=== PATIENT | male | born 2000 | race Hispanic/Latino ===

== ENCOUNTER 2025-04-08 08:05 | Emergency (ER) | payer BC ==
[2025-04-08 08:33] LABS: Absolute Lymphocytes (CBC) 1.7 K/uL (0.7-4.9); Hematocrit 45.8 % (39.6-49.0); Hemoglobin 15.7 g/dL (13.6-17.9); MCH 31.4 pg (27.0-35.0); MCHC 34.3 g/dL (32.0-36.0); MCV 91.4 fL (80-100); MPV 7.4 fL (7.6-11.3); Nucleated RBC Absolute Count 0.0 (0-0); Nucleated Red Blood Cells % 0.0 % (0-0); RBC Red Blood Cell Count 5.01 M/uL (4.33-5.43); White Blood Count 7.40 thou/uL (4.3-10.9)
[2025-04-08 08:51] LABS: ALT/SGPT 67.0 U/L (16-61); AST/SGOT 36.0 U/L (15-37); Albumin 4.0 g/dL (3.4-5.0); Albumin/Globulin Ratio 1.0 (1.1-1.8); Alkaline Phosphatase 84.0 U/L (45-117); Anion Gap 8.6 mEq/L (5.0-15.0); BUN Blood Urea Nitrogen 15.0 mg/dL (7-18); Globulin 3.9 g/dL (2.3-3.5); Glucose Level 100.0 mg/dL (74-106); Potassium 3.6 mEq/L (3.5-5.1)
[2025-04-08 08:52] LABS: Influenza A Ag Negative; Influenza B Ag Negative
[2025-04-08 08:54] LABS: SARS-CoV-2 Antigen Rapid Res Positive (Negative)
--- NOTE | 2025-04-08 09:36 | RAD REPORT ---
EXAM: Chest Single View HISTORY: 24 years Male COUGH COMPARISON: 06/03/2022 FINDINGS: LUNGS/PLEURA: The lungs are clear. No pleural effusions or pneumothorax. No pulmonary edema. CARDIAC/MEDIASTINUM: The cardiac silhouette is within normal limits. UPPER ABDOMEN: No significant abnormality. BONES: No acute abnormality. LINES/TUBES/OTHER: N/A IMPRESSION: No evidence of acute cardiopulmonary disease.
--- NOTE | 2025-04-08 09:42 | ER ---
Nurse's Notes [facility] Name: Juan Cruz Jr Age: 24 yrs Sex: Male : 2000 Arrival Date: 04/08/2025 Time: 08:05 Bed 8 Private MD: Diagnosis: SARS-associated coronavirus as the cause of diseases classified elsewhere Presentation: 04/08 08:19 Chief complaint: Patient states: COUGH, SORE THROAT AND INTERMITTENT EPISTAXIS x2 DAYS. bp Coronavirus screen: At this time, the client does not indicate any symptoms associated with coronavirus-19. Ebola Screen: No symptoms or risks identified at this time. Initial Sepsis Screen: Does the patient meet any 2 criteria? No. Patient's initial sepsis screen is negative. Does the patient have a suspected source of infection? No. Patient's initial sepsis screen is negative. Risk Assessment: Do you want to hurt yourself or someone else? Patient reports no desire to harm self or others. Onset of symptoms is unknown. 08:19 Method Of Arrival: Ambulatory bp 08:19 Acuity: KRISHAN 3 bp Triage Assessment: 08:20 General: Appears in no apparent distress. Behavior is cooperative, appropriate for age, bp anxious. Pain: Denies pain. EENT: No deficits noted. Neuro: No deficits noted. Cardiovascular: Rhythm is sinus tachycardia. Respiratory: Reports HEMOPTYSIS. GI: No signs and/or symptoms were reported involving the gastrointestinal system. GI: Reports normal bowel habits. : No signs and/or symptoms were reported regarding the genitourinary system. Derm: No deficits noted. Musculoskeletal: No deficits noted. Historical: - Allergies: 08:20 No Known Allergies; bp - PMHx: 08:20 None; bp - Immunization history:: Adult Immunizations up to date. - Infectious Disease History:: Denies. - Social history:: Smoking status: Reported history of juuling and/or vaping. Screenin:21 [facility] ED Fall Risk Assessment (Adult) History of falling in the last 3 months, bp including since admission No falls in past 3 months (0 pts) Confusion or Disorientation No (0 pts) Intoxicated or Sedated No (0 pts) Impaired Gait No (0 pts) Mobility Assist Device Used No (0 pt) Altered Elimination No (0 pt) Score/Fall Risk Level 0 - 2 = Low Risk Oriented to surroundings. Abuse screen: Denies threats or abuse. Denies injuries from another. Nutritional screening: No deficits noted. Tuberculosis screening: No symptoms or risk factors identified. Assessment: 08:20 General: SEE TRIAGE NOTE. GI: Abdomen is non-distended. bp Vital Signs: 08:19 BP 146 / 94; Pulse 100; Resp 18; Temp 98; Pulse Ox 97% ; bp 09:50 BP 130 / 83; Pulse 93; Resp 15; Pulse Ox 98% ; bp ED Course: 08:08 Patient arrived in ED. al6 08:09 [facility] kb 08:09 Jorge Alberto Johsi MD is Attending Physician. kb 08:10 Chung Limon, RN is Primary Nurse. bp 08:20 Triage completed. bp 08:20 Arm band placed on. bp 08:21 Patient has correct armband on for positive identification. bp 08:21 Initial lab(s) drawn, by me, sent to lab. COVID swab sent to lab. Flu and/or RSV swab bp sent to lab. Strep swab sent to lab. Inserted saline lock: 20 gauge in right antecubital area, using aseptic technique. Blood collected. Flushed with 10 mL NS. 09:34 Chest Single View XRAY In Process Unspecified. EDMS 09:51 No provider procedures requiring assistance completed. IV discontinued, intact, bp bleeding controlled, No redness/swelling at site. Pressure dressing applied. Administered Medications: No medications were administered Outcome: 09:42 Discharge ordered by MD. kb 09:51 Discharged to home ambulatory, bp 09:51 Condition: stable 09:51 Discharge instructions given to patient, Instructed on discharge instructions, follow up and referral plans. Demonstrated understanding of instructions, follow-up care, 09:51 Patient left the ED. bp Signatures: Dispatcher [employer] EDMS Greta Saucedo FNP-C FNP-Ckb Peltier, Brian, RN RN Karina Trujillo al6
--- NOTE | 2025-04-08 09:42 | EDPHYS ---
Physician Documentation [facility] Name: Juan Cruz Jr Age: 24 yrs Sex: Male : 2000 Arrival Date: 04/08/2025 Time: 08:05 Bed 8 Private MD: ED Physician Jorge Alberto Joshi HPI: 04/08 08:46 This 24 yrs old Male presents to ER via Ambulatory with complaints of Flank kb Pain, Vomiting - blood. 08:46 Patient is a 24-year-old male who presents for sore throat, cough with hemoptysis and kb nosebleed. States the sore throat started yesterday morning, hemoptysis started last night and nosebleed was last night, now resolved. States he has had a cough this morning but has not noticed any blood in it. Patient reports pain to lateral aspects of ribs. Historical: - Allergies: 08:20 No Known Allergies; bp - PMHx: 08:20 None; bp - Immunization history:: Adult Immunizations up to date. - Infectious Disease History:: Denies. - Social history:: Smoking status: Reported history of juuling and/or vaping. ROS: 08:47 Constitutional: As per HPI kb Exam: 08:47 Constitutional: This is a well developed, well nourished patient who is awake, alert, kb and in no acute distress. Head/Face: Normocephalic, atraumatic. ENT: Moist Mucous membranes Cardiovascular: Regular rate Respiratory: Respirations even and unlabored. No increased work of breathing. Talking in full sentences Abdomen/GI: Soft, non-tender. No distention Skin: Warm, dry with normal turgor. Normal color. MS/ Extremity: Pulses equal, no cyanosis. Neurovascular intact. Full, normal range of motion. Neuro: Awake and alert, GCS 15, oriented to person, place, time, and situation. Vital Signs: 08:19 BP 146 / 94; Pulse 100; Resp 18; Temp 98; Pulse Ox 97% ; bp 09:50 BP 130 / 83; Pulse 93; Resp 15; Pulse Ox 98% ; bp MDM: 08:09 Medical Screening Exam initiated kb 09:28 Differential Diagnosis: Bronchitis Influenza Upper Respiratory Infection Pneumonia kb Other covid. Data reviewed: vital signs, nurses notes. I considered the following discharge prescriptions or medication management in the emergency department I discussed and recommended Over The Counter medications, Antibiotics: At this time antibiotics are not recommended. Independent interpretation of the following test(s) in the Emergency Department X-Ray: My interpretation is no pneumonia or pneumothorax. Counseling: I had a detailed discussion with the patient and/or guardian regarding the historical points, exam findings, and any diagnostic results supporting the discharge/admit diagnosis, lab results, radiology results, the need for outpatient follow up, a family practitioner, to return to the emergency department if symptoms worsen or persist or if there are any questions or concerns that arise at home. 04/08 08:15 Order name: CBC with Diff; Complete Time: 08:38 kb 04/08 08:15 Order name: CMP; Complete Time: 08:58 kb 04/08 08:15 Order name: D-Dimer; Complete Time: 08:48 kb 04/08 08:15 Order name: COVID-19 Ag + Flu A+B Ag; Complete Time: 08:58 kb 04/08 08:15 Order name: Group A Streptococcus Rapid; Complete Time: 08:47 kb 04/08 08:49 Order name: Throat Culture [facility] 04/08 08:35 Order name: Chest Single View XRAY; Complete Time: 09:42 ss 04/08 08:15 Order name: IV Start; Complete Time: 08:18 kb Administered Medications: No medications were administered Disposition: 17:10 Co-signature as Attending Physician, Jorge Alberto Joshi MD I reviewed the patient's care rn provided by the Advanced Practice Provider and agree with the diagnosis and treatment plan. Disposition Summary: 04/08/25 09:42 Discharge Ordered Notes: Location: Home kb Condition: Stable kb Diagnosis - SARS-associated coronavirus as the cause of diseases classified elsewhere kb Followup: kb - With: Emergency Department - When: As needed - Reason: Worsening of condition Followup: kb - With: Private Physician - When: 2 - 3 days - Reason: Recheck today's complaints, Continuance of care, Re-evaluation by your physician Discharge Instructions: - Discharge Summary Sheet kb - COVID-19 kb - Viral Illness, Adult kb Forms: - Work release form kb - Medication Reconciliation Form kb - Antibiotic Education kb - Prescription Opioid Use kb - Patient Portal Instructions kb - Leadership Thank You Letter kb Signatures: Dispatcher [employer] EDGreta Dunlap, HANNAH-C DAYCARE MANAGER-Jorge Alberto Redd MD MD rn Chung Limon RN RN bp Corrections: (The following items were deleted from the chart) 08:47 08:46 Patient is a 24-year-old male who presents for sore throat, cough with hemoptysis kb and nosebleed. States the sore throat started yesterday morning, hemoptysis started last night and nosebleed was last night, now resolved. States he has had a cough this morning but has not noticed any blood in it.. kb
[2025-04-08 10:09] VITALS: TEMP 98
[2025-04-08 10:10] VITALS: BP 130/83; O2SAT 98
== END 2025-04-08 09:51 | disposition home or self-care (01) ==
LOC: ER 08:05
DX: U07.1 COVID-19 (principal)
CPT/HCPCS: 36415; 71045; 80053; 85025; 85379; 87070; 87428; 99283